=== PATIENT | female | born 1950 | race Caucasian/White ===

== ENCOUNTER → 2016-08-26 | Outpatient (CLI) | payer MEDICARE ==
[2015-04-22 08:56] VITALS: BP 128/76
[~2016-08-26] MED LIST: ANTIBIOTIC; BETA1TAB10 PO; BIOT1CAP3 PO; CALC500T27 PO; CEFP200T PO; CRAN200C PO; MULT1TAB52 PO; SOY155CA PO; VALA500T5 PO
--- NOTE | 2016-08-26 11:55 | RAD ---
DATE: 08/26/2016 EXAM: MAMMO ALYSSA SCREENING BILATERAL HISTORY: Routine screening COMPARISON: 06/29/2015 This study was interpreted with the benefit of Computerized Aided Detection (CAD). FINDINGS: 2-D and 3-D tomosynthesis imaging was performed in CC and MLO projections. The breasts are heterogeneously dense which can limit the sensitivity of mammography. No new or enlarging breast densities are seen. Benign type calcifications are present. No suspicious microcalcifications have developed. IMPRESSION: Stable mammograms without evidence of malignancy. BI-RADS CATEGORY: 2 BENIGN FINDING(S) RECOMMENDED FOLLOW-UP: 12M 12 MONTH FOLLOW-UP PQRS compliance statement: Patient information was entered into a reminder system with a target due date for the next mammogram. Mammography is a sensitive method for finding small breast cancers, but it does not detect them all and is not a substitute for careful clinical examination. A negative mammogram does not negate a clinically suspicious finding and should not result in delay in biopsying a clinically suspicious abnormality. "Our facility is accredited by the [employer] Mammography [employer]."
== END | disposition home or self-care (01) ==
LOC: MAMMO 10:29
PROVIDERS: ATTEND Family Medicine
DX: Z12.31 Encounter for screening mammogram for malignant neoplasm of breast (principal)
CPT/HCPCS: 77063; G0202; 77067

== ENCOUNTER → 2017-06-21 | Outpatient (CLI) | payer MEDICARE ==
[2015-04-22 08:56] VITALS: BP 128/76
[~2017-06-21] MED LIST changes: -CALC500T27 PO; +CALC500T30 PO; -CRAN200C PO; +CRAN200C2 PO
--- NOTE | 2017-06-21 12:32 | RAD ---
Indication: Postmenopausal screening for osteoporosis. Follow-up exam. Comparison: May 06, 2015. Bone Density: -BMD: (g/cm2) - AP Spine Total (L1-L4).......... 0.986. Transitional vertebra may be present. However, the same levels are counted as previous. - Total right Hip................. 0.828. T-Score: - AP Spine Total (L1-L4)......... -1.6. - Total right Hip................. -1.4. Z-Score: - AP Spine Total (L1-L4).......... 0.7. - Total right Hip................. 0.5. World Health Organization criteria for BMD interpretation classify patients as Normal (T-score at or above -1.0), Osteopenic (T-score between -1.0 and -2.5), or Osteoporotic (T-score at or below -2.5). Impression: 1. AP Spine Total L1-L4---osteopenia. Since the previous study, there has been a decrease in the BMD of approximately 3%. 2. Total right Hip---osteopenia. Since the previous study, there has been a decrease in the BMD of approximately 4%.
== END | disposition home or self-care (01) ==
LOC: DXRAD 09:58
PROVIDERS: ATTEND Nurse Practitioner Family
DX: Z13.820 Encounter for screening for osteoporosis (principal); M85.80 Other specified disorders of bone density and structure, unspecified site; Z78.0 Asymptomatic menopausal state
CPT/HCPCS: 77080

== ENCOUNTER → 2017-08-30 | Outpatient (CLI) | payer MEDICARE ==
[2015-04-22 08:56] VITALS: BP 128/76
--- NOTE | 2017-08-31 12:24 | RAD ---
DATE: 08/30/2017 EXAM: MAMMO ALYSSA SCREENING BILATERAL HISTORY: Routine screening COMPARISON: 08/26/2016 This study was interpreted with the benefit of Computerized Aided Detection (CAD). The breast parenchyma is heterogeneously dense, which could reduce sensitivity of mammography. Breast parenchyma level C. FINDINGS: 2-D and 3-D tomosynthesis imaging was performed in CC and MLO projections. The fibroglandular tissues are heterogeneous and somewhat nodular in character. No new or enlarging breast densities are seen. Benign type calcifications are again noted. No suspicious microcalcifications have developed. IMPRESSION: Stable mammograms without evidence of malignancy. BI-RADS CATEGORY: 2 BENIGN FINDING(S) RECOMMENDED FOLLOW-UP: 12M 12 MONTH FOLLOW-UP PQRS compliance statement: Patient information was entered into a reminder system with a target due date for the next mammogram. Mammography is a sensitive method for finding small breast cancers, but it does not detect them all and is not a substitute for careful clinical examination. A negative mammogram does not negate a clinically suspicious finding and should not result in delay in biopsying a clinically suspicious abnormality. "Our facility is accredited by the [employer] Mammography [employer]."
== END | disposition home or self-care (01) ==
LOC: MAMMO 09:49
PROVIDERS: ATTEND Family Medicine
DX: Z12.31 Encounter for screening mammogram for malignant neoplasm of breast (principal)
CPT/HCPCS: 77063; 77067

== ENCOUNTER → 2018-08-15 | Outpatient (CLI) | payer MEDICARE ==
[2015-04-22 08:56] VITALS: BP 128/76
--- NOTE | 2018-08-15 16:27 | RAD ---
Bilateral lower extremity arterial ultrasound, 08/15/2018: HISTORY: Peripheral vascular disease Duplex evaluation of the major arteries in both lower extremities was performed including grayscale, color-flow and spectral Doppler analysis. There are mild scattered atherosclerotic plaques. The right common femoral, superficial femoral and popliteal arteries demonstrate triphasic Doppler waveforms. No significant focal velocity acceleration is seen in those vessels to suggest significant focal stenosis. Patent posterior tibial and anterior tibial arteries are present in the right lower leg demonstrating triphasic and biphasic Doppler waveforms. The right peroneal artery could not be visualized. The right dorsalis pedis artery is patent with a good amplitude biphasic Doppler waveform. On the left the common femoral, superficial femoral and popliteal Doppler waveforms are triphasic. No significant focal velocity acceleration is seen to suggest significant focal stenosis. Patent posterior tibial and anterior tibial arteries are present in the left lower leg demonstrating biphasic Doppler waveforms. The left peroneal artery could not be visualized. The left dorsalis pedis artery is patent with a good amplitude biphasic Doppler waveform. IMPRESSION: 1. Mild scattered atherosclerotic plaquing without evidence of significant femoral-popliteal arterial stenosis. 2. Nonvisualization of the peroneal arteries in both lower legs may be due to occlusion on a technical basis. 3. Good anterior tibial, posterior tibial and dorsalis pedis runoff in both lower legs. Electronically signed by: Silverio Mcnulty MD (08/15/2018 4:24 PM) [facility]
== END | disposition home or self-care (01) ==
LOC: US 10:28
PROVIDERS: ATTEND Family Medicine
DX: I70.291 Other atherosclerosis of native arteries of extremities, right leg (principal)
CPT/HCPCS: 93925

== ENCOUNTER → 2018-09-01 | Outpatient (CLI) | payer MEDICARE ==
[2015-04-22 08:56] VITALS: BP 128/76
--- NOTE | 2018-09-01 10:22 | RAD ---
DATE: 09/01/2018 EXAM: MAMMO ALYSSA SCREENING BILATERAL HISTORY: Routine screening COMPARISON: 08/30/2017 This study was interpreted with the benefit of Computerized Aided Detection (CAD). Breast Density: HETERO The breast parenchyma is heterogenously dense, which could reduce sensitivity of mammography. Breast parenchyma level C. FINDINGS: 2-D and 3-D tomosynthesis imaging was performed in CC and MLO projections. The breasts are quite heterogeneous a multinodular pattern. No new or enlarging breast densities seen. No architectural distortion is evident. Benign type calcifications are present. No suspicious microcalcifications have developed. IMPRESSION: Stable mammograms without evidence of malignancy. BI-RADS CATEGORY: 2 BENIGN FINDING(S) RECOMMENDED FOLLOW-UP: 12M 12 MONTH FOLLOW-UP PQRS compliance statement: Patient information was entered into a reminder system with a target due date for the next mammogram. Mammography is a sensitive method for finding small breast cancers, but it does not detect them all and is not a substitute for careful clinical examination. A negative mammogram does not negate a clinically suspicious finding and should not result in delay in biopsying a clinically suspicious abnormality. "Our facility is accredited by the [employer] Mammography [employer]."
== END | disposition home or self-care (01) ==
LOC: MAMMO 09:36
PROVIDERS: ATTEND Family Medicine
DX: Z12.31 Encounter for screening mammogram for malignant neoplasm of breast (principal); N64.89 Other specified disorders of breast
CPT/HCPCS: 77063; 77067

== ENCOUNTER → 2019-11-15 | Outpatient (CLI) | payer MEDICARE ==
[2015-04-22 08:56] VITALS: BP 128/76
[~2019-11-15] MED LIST changes: +MULT-445 PO; -MULT1TAB52 PO
--- NOTE | 2019-11-19 10:18 | RAD ---
EXAM: BILATERAL DIGITAL 3D SCREENING MAMMOGRAPHY. HISTORY: Routine mammographic screening. TECHNIQUE: Bilateral digital 3D and tomographic images were obtained in CC and MLO projections. Computer-aided detection was applied. COMPARISON: 09/01/2018. COMPOSITION: D. The breasts are extremely dense, which lowers the sensitivity of mammography. FINDINGS: There are no suspicious masses, microcalcifications or architectural distortion. The parenchymal pattern is stable. A few obscured nodules are stable. Scattered and coarse calcifications are benign. BI-RADS CATEGORY 2: Benign. RECOMMENDATION: 1. Routine screening mammography in one year. If mammography demonstrates dense breast tissue (heterogenously dense or extremely dense, category C or D), which could hide abnormalities, and if other risk factors for breast cancer have been identified, supplemental screening tests that may be suggested by the ordering physician may be of benefit. Dense breast tissue, in and of itself, is a relatively common condition. Therefore, this information is not provided to cause undue concern, but rather to raise awareness and to promote discussion with the referring physician regarding the presence of other risk factors, in addition to dense breast tissue. The results of this mammography examination is provided to the patient and referring physician. The patient should contact their referring physician if any questions or concerns exist regarding this report. PQRS compliance statement - Patient information was entered into a reminder system with a target due date for the next mammogram. "Our facility is accredited by the [employer] Mammography [employer]." Electronically signed by: Dann Bauer MD (11/19/2019 10:15 AM) [id number]
== END | disposition home or self-care (01) ==
LOC: MAMMO 14:25
PROVIDERS: ATTEND Family Medicine
DX: Z12.31 Encounter for screening mammogram for malignant neoplasm of breast (principal); N64.89 Other specified disorders of breast
CPT/HCPCS: 77063; 77067

== ENCOUNTER → 2020-03-20 | Outpatient (CLI) | payer MEDICARE ==
[2015-04-22 08:56] VITALS: BP 128/76
--- NOTE | 2020-03-20 15:16 | RAD ---
INDICATION: Osteoporosis screening. Postmenopausal follow-up COMPARISON: 06/21/2017 TECHNIQUE: Bone densitometry was performed through the lumbar spine and proximal femur. FINDINGS: Lumbar Spine: BMD: 1.0 T-Score: -1.4 Not significantly changed from baseline Proximal Femur: BMD: 0.8 T-Score: -1.3 Decreased by 2 percent from baseline IMPRESSION: 1. Lumbar spine falls within the osteopenic range. 2. Proximal femur falls within the osteopenic range. Electronically signed by: Bladimir Tinajero MD (03/20/2020 3:13 PM) [id number]
== END ==
LOC: DXRAD 13:33
PROVIDERS: ATTEND Physician Assistant
DX: Z13.820 Encounter for screening for osteoporosis (principal); M81.8 Other osteoporosis without current pathological fracture
CPT/HCPCS: 77080

== ENCOUNTER → 2020-11-18 | Outpatient (CLI) | payer MEDICARE ==
[2015-04-22 08:56] VITALS: BP 128/76
--- NOTE | 2020-11-19 11:33 | RAD ---
DATE: 11/18/2020 EXAM: MAMMO ALYSSA SCREENING BILATERAL HISTORY: Screening COMPARISON: 11/15/2019, 09/01/2018, 08/30/2017, 08/26/2016, 06/09/2015, 06/05/2014 This study was interpreted with the benefit of Computerized Aided Detection (CAD). Breast Density: DENSE The breast parenchyma is dense, which could reduce the sensitivity of mammography. Breast parenchyma level density D. FINDINGS: There are 2 focal asymmetries in the retroareolar left breast measuring approximately 8 mm each, best seen on MLO tomosynthesis slice 14/49. No suspicious mass in the right breast. No suspicious calcifications or architectural distortion in either breast. IMPRESSION: 2 focal asymmetries in the retroareolar left breast. Recommend ultrasound further evaluate. BI-RADS CATEGORY: 0 INCOMPLETE: NEEDS ADDITIONAL IMAGING EVALUATION AND/OR PRIOR MAMMOGRAMS FOR COMPARISON. RECOMMENDED FOLLOW-UP: ADD ADDITIONAL IMAGING PQRS compliance statement: Patient information was entered into a reminder system with a target due date for the next mammogram. Mammography is a sensitive method for finding small breast cancers, but it does not detect them all and is not a substitute for careful clinical examination. A negative mammogram does not negate a clinically suspicious finding and should not result in delay in biopsying a clinically suspicious abnormality. "Our facility is accredited by the [employer] Mammography [employer]."
== END ==
LOC: MAMMO 11:11
PROVIDERS: ATTEND Family Medicine
DX: Z12.31 Encounter for screening mammogram for malignant neoplasm of breast (principal)
CPT/HCPCS: 77063; 77067

== ENCOUNTER → 2020-12-02 | Outpatient (CLI) | payer MEDICARE ==
[2015-04-22 08:56] VITALS: BP 128/76
--- NOTE | 2020-12-02 13:35 | RAD ---
EXAM: Left breast sonogram. HISTORY: 70-year-old female presents for evaluation of asymmetries within the left breast demonstrate d on a screening mammogram dated 11/18/2020. TECHNIQUE: Sonographic imaging of the left breast targeted to sites of reported asymmetry was perform ed. COMPARISON: 11/18/2020. FINDINGS: There is dense breast parenchyma. There are ectatic ducts within the anterior left breast, some which contain debris. No intraductal mass is seen. There is no suspicious sonographic finding. IMPRESSION: 1. Dense breast parenchyma and mild retroareolar ductal ectasia. There is no suspicious correlate for asymmetry on the recent mammogram. 2. BI-RADS Category 2: Benign finding(s). Annual mammography is recommended. Electronically signed by: Litzy Lozano MD (12/02/2020 1:33 PM) [id number]
== END ==
LOC: US 12:26
PROVIDERS: ATTEND Family Medicine
DX: R92.2 Inconclusive mammogram (principal); N60.42 Mammary duct ectasia of left breast
CPT/HCPCS: 76642

== ENCOUNTER 2021-09-22 06:50 | Inpatient (IN) | payer MEDICARE ==
[~2021-09-22] VITALS: Ht 160 cm; Wt 61.3 kg
[2021-09-22] MEDS ORDERED: IV RINGERS SOLUTION,LACTATED 1,000 ML IV SCH (07:00)
--- NOTE | 2021-09-22 07:14 | RAD ---
CT Head W/O Contrast: History: Reason: ams / Spl. Instructions: / History: Stroke Protocol Comparison: none Axial images were obtained without contrast. There is mild diffuse atrophy. There is no mass effect, extraaxial fluid collections or hydrocephalu s. Mild to moderate There is no focal loss of lion-white matter distinction to suggest acute ischemia , i.e. stroke. There is mild motion artifact. Impression: No acute findings. PQRS Compliance Statement: One or more of the following individualized dose reduction techniques were utilized for this examinat ion: 1. Automated exposure control 2. Adjustment of the mA and/or kV according to patient size 3. Use of iterative reconstruction technique FOR INTERNAL CODING PURPOSES Critical result: Findings discussed with JOSE FERNANDEZ MD at 09/22/2021 7:11 AM. RESULT CODE: (C) Electronically signed by: Avtar Whitten III, MD (09/22/2021 7:12 AM) [facility]
--- NOTE | 2021-09-22 07:26 | PHYS DOC ---
General Adult HPI: HPI: Patient is a 71-year-old female coming from home via EMS for altered mental status and tremors. Patient had been undergoing a bowel prep yesterday for colonoscopy today. ER was notified by patient's GI doctor, Dr. Clemons the patient be coming in. History provided by patient's significant other he does not know if she has any significant medical history but states he is not involved in that aspect. Patient sees Dr. Vo. The colonoscopy she had scheduled today is routine. He states that last time she had a colonoscopy 5 years ago she had passed out after the bowel prep and hit her head. He states that she had shaking that started yesterday. Review of Systems: Review of Systems: All other systems within normal limits except for as noted in the HPI Current Medications: Current Meds: Current Medications Medications (Trade) Dose Ordered Sig/Abhishek Start Time Stop Time Status Last Admin Dose Admin Lactated Ringer's 1,000 ml @ 1,000 mls/hr Q1H 09/22/21 07:00 09/22/21 07:59 Lorazepam (Ativan Inj) 2 mg STK-MED ONCE 09/22/21 06:54 09/22/21 06:54 DC Allergies: Allergies: Allergies Coded Allergies Type Severity Reaction Last Updated Verified No Known Drug Allergies 04/14/15 No Physical Exam: PE: Constitutional: Well developed, well nourished, no acute distress, non-toxic appearance. [] HENT: Normocephalic, atraumatic, bilateral external ears normal, nose normal. [] Eyes: PERRLA, conjunctiva normal, no discharge. [] Neck: No rigidity, supple, no stridor. [] Cardiovascular: Regular rate and rhythm, brisk cap refill [] Lungs & Thorax: Non labored symmetric respirations, no tachypnea or respiratory distress [] Abdomen: Soft, nondistended. Skin: Warm, dry, no erythema, no rash. [] Back: Unremarkable Extremities: No deformities, range of motion grossly intact, no lower extremity edema [] Neurologic: Alert but nonverbal, intermittently cooperative, bilateral upper and lower extremity tremors Psychologic: Unable to assess EKG: EKG: [] Radiology/Procedures: Radiology/Procedures: [] Heart Score: C/O Chest Pain: N/A Risk Factors: Risk Factors: DM, Current or recent (<one month) smoker, HTN, HLP, family history of CAD, obesity. Risk Scores: Score 0 - 3: 2.5% MACE over next 6 weeks - Discharge Home Score 4 - 6: 20.3% MACE over next 6 weeks - Admit for Clinical Observation Score 7 - 10: 72.7% MACE over next 6 weeks - Early Invasive Strategies Course & Med Decision Making: Course & Med Decision Making Patient presents with hyponatremia. Started on normal saline for correction. Admitted to hospitalist, Dr. Crespo. Haja Disclaimer: Haja Disclaimer: This electronic medical record was generated, in whole or in part, using a voice recognition dictation system. Departure Departure: Impression: Primary Impression: Hyponatremia Disposition: ADMITTED INPATIENT Admitting Physician: Jenaro Crespo Condition: STABLE Referrals: EMMETT VO MD (PCP) JOSE FERNANDEZ MD September 22, 2021 07:26
[2021-09-22 08:18] LABS: BASO % 0 % (0-3); EOS % 0 % (0-3); HEMATOCRIT 35.8 % (36.0-47.0); HEMOGLOBIN 12.3 g/dL (12.0-15.5); LYMPH # 0.6 x10^3/uL (1.0-4.8); LYMPH % 5 % (24-48); MEAN CORPUSCULAR HEMOGLOBIN 32 pg (25-35); MEAN CORPUSCULAR HGB CONC 34 g/dL (31-37); MEAN CORPUSCULAR VOLUME 93 fL (79-100); MONO # 1.4 x10^3/uL (0.0-1.1); MONO % 11 % (0-9); NEUT # 10.9 x10^3uL (1.8-7.7); NEUT % 85 % (31-73); PLATELET COUNT 269 x10^3/uL (140-400); RED BLOOD COUNT 3.87 x10^6/uL (3.50-5.40); RED CELL DISTRIBUTION WIDTH 12.1 % (11.5-14.5); WHITE BLOOD COUNT 12.9 x10^3/uL (4.0-11.0)
[2021-09-22 08:23] LABS: CALCIUM 8.4 mg/dL (8.5-10.1); CREATININE 0.5 mg/dL (0.6-1.0); GFR 120.9; POTASSIUM 4.3 mmol/L (3.5-5.1)
[2021-09-22 08:36] LABS: ALBUMIN 3.7 g/dL (3.4-5.0); ALBUMIN/GLOBULIN RATIO 1.3 (1.0-1.7); MAGNESIUM 1.8 mg/dL (1.8-2.4); TOTAL BILIRUBIN 0.8 mg/dL (0.2-1.0); TOTAL PROTEIN 6.6 g/dL (6.4-8.2)
[2021-09-22] MEDS ORDERED: ONDANSETRON PF 4 MG/2 ML VIAL. IVP PRN (09:00)
[2021-09-22] MEDS: IV NORMAL SALINE 1,000ML 1,000 ML IV SCH ×2 (09:00→10:55)
[2021-09-22 09:32] LABS: INFLUENZA A PATIENT NEGATIVE (NEGATIVE); INFLUENZA B PATIENT NEGATIVE (NEGATIVE)
[2021-09-22 10:08] VITALS: BP 131/75
[2021-09-22] MEDS ORDERED: ATOR10TA60 PO (10:41)
[2021-09-22] MEDS ORDERED: ONDA4TAB12 PO (10:41)
[2021-09-22 12:03] LABS: BACTERIA,URINE MANY /HPF (0-FEW); CLARITY,URINE CLOUDY; COLOR,URINE YELLOW; GLUCOSE,URINE NEG (NEG); NITRITE,URINE POS (NEG); SQUAMOUS EPITHELIAL CELL,UR OCC /LPF; UROBILINOGEN,URINE 0.2 mg/dL (0.2 mg/dL)
[2021-09-22 14:51] VITALS: BP 112/67
[2021-09-22 19:30] VITALS: BP 118/76
[2021-09-23 06:00] LABS: BASO % 0 % (0-3); EOS % 0 % (0-3); HEMOGLOBIN 11.2 g/dL (12.0-15.5); LYMPH # 0.8 x10^3/uL (1.0-4.8); LYMPH % 10 % (24-48); MEAN CORPUSCULAR HEMOGLOBIN 32 pg (25-35); MEAN CORPUSCULAR HGB CONC 34 g/dL (31-37); MEAN CORPUSCULAR VOLUME 94 fL (79-100); MONO # 1.5 x10^3/uL (0.0-1.1); MONO % 18 % (0-9); NEUT # 6.2 x10^3uL (1.8-7.7); NEUT % 73 % (31-73); PLATELET COUNT 196 x10^3/uL (140-400); RED BLOOD COUNT 3.51 x10^6/uL (3.50-5.40); WHITE BLOOD COUNT 8.5 x10^3/uL (4.0-11.0)
[2021-09-23 06:11] LABS: ALBUMIN 2.8 g/dL (3.4-5.0); CALCIUM 7.9 mg/dL (8.5-10.1); CREATININE 0.5 mg/dL (0.6-1.0); GFR 120.9; POTASSIUM 3.6 mmol/L (3.5-5.1); TOTAL BILIRUBIN 0.7 mg/dL (0.2-1.0); TOTAL PROTEIN 5.7 g/dL (6.4-8.2)
[2021-09-23 06:21] VITALS: BP 107/63
[2021-09-23] MEDS: IV NORMAL SALINE 1,000ML 1,000 ML IV SCH (09:43)
[2021-09-23 10:47] VITALS: BP 92/52
--- NOTE | 2021-09-23 11:09 | HP ---
DATE OF SERVICE: 09/23/2021 ADMIT DATE: 09/22/2021 ATTENDING PHYSICIAN: Dr. Crespo. CHIEF COMPLAINT: Lethargy. HISTORY OF PRESENT ILLNESS: The patient is a 71-year-old female admitted through the ED with worsening lethargy, confusion and altered mentation. She had an extensive workup. She was in the midst of doing a prep for colonoscopy. They found a serum sodium [address] of the head was unremarkable for any acute strokes or bleeds. She is not on any diuretics. I went over the medication. She does take some Valtrex for postherpetic neuralgia. 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 She was admitted to the hospital for monitoring as well as gentle IV hydration, serial electrolytes. PAST MEDICAL HISTORY: Significant for cataract surgery. She also has hyperlipidemia. She has been very healthy. She lives with a common-law . 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 She balances her checkbook. She drives a car and otherwise very functional. CURRENT MEDICATIONS: Reviewed. She was on Lipitor, beta-carotene, biotin, calcium, cranberry, multivitamin, soy milk and Valtrex. SOCIAL HISTORY: She is a nonsmoker, nondrinker. FAMILY HISTORY: Mom of complications of old age at age 88. Father at an unknown age, unknown causes. REVIEW OF SYSTEMS: Significant for the patient's recent colonoscopy. She was on a bowel prep, which caused nausea and vomiting. Otherwise, the patient has been fairly active. She is very alert. She has balancing her checkbook and drives a car. All other systems reviewed and turned to be negative. PHYSICAL EXAMINATION: GENERAL: When I saw her, she was already doing better as was the next day, sodium come off a it. INITIAL VITAL SIGNS: Showed a blood pressure of 107/63, her pulse is 85 and regular. She was afebrile, oxygen saturation 96% on room air. HEENT: Head is without trauma. Pupils are reactive. Sclerae are nonicteric. Oropharynx is clear. NECK: Supple. No bruits. LUNGS: Clear to auscultation. CARDIOVASCULAR: Showed regular heart tones. ABDOMEN: Soft. EXTREMITIES: Without edema. NEUROLOGIC: She is alert, still a bit lethargic. She was sleeping, but she was able to be awoken and answer questions appropriately. There are no focal deficits. SKIN: Warm and dry. PERTINENT LABORATORY STUDIES: Admission serum sodium was 121 mEq/L, chloride 85, creatinine 0.5, repeat today this morning is up to 129 mEq, potassium 3.6 mEq per liter. Hemoglobin maintained 12.3 grams, white count 8500. Serology negative for coronavirus. ASSESSMENT: 1. A 71-year-old female with symptomatic hyponatremia causing lethargy and altered mentation. 2. Probable syndrome of inappropriate antidiuretic hormone. 3. Postherpetic neuralgia. PLAN: 1. Admit to the inpatient unit. 2. Gentle IV hydration with saline. 3. Serial chemistries. 4. Diet as tolerated. 5. Spot urinary sodium. 6. Some home meds continued. DARIAN/DOUG/NIDHI DR: DARIAN/shantel TID: [id number] CC: EMMETT HOLGUIN MD, CHANDAN OLIVEIRA MD
[2021-09-23 14:16] VITALS: BP 101/67
[2021-09-23] MEDS: ACETAMINOPHEN 500 MG TABLET PO PRN (15:54)
[2021-09-23 19:43] VITALS: BP 91/53
[2021-09-23 23:06] VITALS: BP 111/66
[2021-09-24] MEDS: IV NORMAL SALINE 1,000ML 1,000 ML IV SCH (01:33)
[2021-09-24] MEDS: ACETAMINOPHEN 500 MG TABLET PO PRN (01:33)
[2021-09-24 05:45] VITALS: BP 106/62
[2021-09-24 06:11] LABS: CALCIUM 7.8 mg/dL (8.5-10.1); CREATININE 0.6 mg/dL (0.6-1.0); POTASSIUM 3.8 mmol/L (3.5-5.1)
[2021-09-24] MEDS ORDERED: ACETAMINOPHEN 500 MG TABLET PO PRN (07:30)
[2021-09-24 08:27] VITALS: BP 116/61
--- NOTE | 2021-09-24 16:13 | DS ---
DATE OF DISCHARGE: 09/24/2021 ATTENDING PHYSICIAN: Dr. Crespo. FINAL DISCHARGE DIAGNOSES: 1. Symptomatic hyponatremia. 2. Altered mentation, resolved. 3. Syndrome of inappropriate antidiuretic hormone secretion. 4. Postherpetic neuralgia. HISTORY AND PHYSICAL: The patient is a pleasant, active 71-year-old female admitted through the ED with worsening symptoms of lethargy, confusion. CT of the head was nondiagnostic. Workup showed a serum sodium of 121 mEq per liter. She had been in the process of getting a preparation for colonoscopy whether or not this is the cause, remains to be seen. PHYSICAL EXAMINATION: Please see my dictated note. PERTINENT LABORATORY AND X-RAY STUDIES: Her admission hemoglobin was 12.3 g/dL, white count 12,900. Her serum sodium on admission was 121, with gentle IV hydration with saline the next day was up to 129 mEq per liter and the third day was 139 mEq per liter. Creatinine was stable at 0.6 mg/dL. Nonfasting blood sugar within range, chloride came out concomitantly and the potassium was 3.8 mEq. Random spot urinary sodium was abnormal at 65 mEq. COURSE IN THE HOSPITAL: The patient was admitted. She was started on normal saline with daily chemistries with marked improvement. The goal was to increase the serum sodium by 8-10 mEq per liter. This was accomplished with the judicious rate. She did better. Physical therapy recommended the patient on the chart. At this time, she was ready for discharge. Whether or not she will maintain her sodium, remains to be seen. I recommended some oral Gatorade and a followup chemistry panel with Dr. Holguin next week. She was discharged home, then with recommendation to continue her Lipitor and Valtrex. For now, I have asked her to hold her biotin, beta-carotene, calcium, cranberry extract, multivitamin and isoflavones, these are [id number] vitamins. The patient then discharged from our hospital in stable condition with explicit drug and followup care. Total discharge time was [address]: Jhon TID: [id number] CC: EMMETT HOLGUIN MD
--- NOTE | 2021-09-24 19:40 | PN ---
DATE: 09/23/2021 SUBJECTIVE: The patient has been more alert and oriented. She denies any new medical or neurological complaints; however, the patient did recall what happened prior to admission including the preparation for colonoscopy. The patient did not recall going to the hospital. She denies headaches, visual disturbances, nausea, vomiting, chest pain, shortness of breath or palpitation, dysarthria or dysphagia. The patient also complains of generalized fatigue and weakness. OBJECTIVE: GENERAL: Well-developed, well-nourished female in no acute distress. VITAL SIGNS: Blood pressure 107/63; respiratory rate 20; pulse is 85, regular; oxygen saturation is 96% on room air and temperature is 98.8. HEENT: Normocephalic, atraumatic, otherwise unremarkable. NECK: Supple, negative for carotid bruit, lymphadenopathy or thyromegaly. LUNGS: Clear to A and P. CARDIOVASCULAR SYSTEM: Regular rate and rhythm, normal S1, S2. There is no S3, S4 or murmur. ABDOMEN: Soft. Bowel sounds positive. EXTREMITIES: Negative for cyanosis, clubbing or pedal edema. NEUROLOGIC: Mental status: The patient is alert and oriented x 2. The speech is more fluent. There is no language dysfunction. Memory, judgment and abstracting thinking are fair at this time. The patient denies hallucination or delusion. Cranial nerves: Visual eisenberg are full. The pupils are reactive to light and accommodation. The extraocular movements are intact. There is no nystagmus. There is no facial motor or sensory deficits. Hearing is intact bilaterally. The palate is elevated symmetrically. Sternocleidomastoid muscles are powerful bilaterally. The patient shrugs her shoulders symmetrically, protrudes her tongue in the midline without fasciculation or atrophy. Motor examination: No focal muscle bulk wasting. The tone is normal. The strength is 4/5 throughout. Sensory examination revealed normal pinprick, light touch, vibratory and position senses. Deep tendon reflexes were symmetric and hypoactive with absent Achilles responses. Gait not tested. LABORATORY DATA: CBC revealed blood cells of 8.5 thousand, hemoglobin 11.2, hematocrit 33, platelet count 196,000. Chemistry revealed sodium of 129, potassium 3.6, chloride 96, CO2 of 27, BUN 5, creatinine 0.5, glucose is 85, calcium 7.9. IMPRESSION: 1. Acute encephalopathy -- improved, likely due to hyponatremia and dehydration. 2. Urinary tract infections. 3. Post-herpetic neuralgia. RECOMMENDATIONS: 1. Continue with current management initiated by Dr. Crespo including hydration and treat the underlying urinary tract infections. 2. PT, OT evaluation. 3. Continue with IV fluid and correct hyponatremia. 4. Neurologically, the patient is making good progress of her encephalopathy. KIRBY/RAYMOND DR: Tom TID: [id number]
--- NOTE | 2021-09-24 20:04 | CONS ---
DATE OF CONSULTATION: 09/22/2021 NEUROLOGY CONSULTATION REFERRING PHYSICIAN: Dr. Jenaro Crespo. REASON FOR CONSULTATION: Acute mental status changes. HISTORY OF PRESENT ILLNESS: This is a 71-year-old right-handed female who was admitted through Emergency Room today on 09/22/2021 after she presented with chief complaint of acute mental status changes. According to the patient's niece and , the patient has been taking preparation for colonoscopy since yesterday morning. In the middle of this preparation, the patient was found by her niece and being confused, disoriented and having intermittent stiffness of the upper extremities. On the morning of admission, the patient continued to be confused and disoriented, and unable to talk or answer questions. The was concerned about acute mental status changes and called EMS. The patient was transferred to the Emergency Room and she was found to be confused and disoriented and unable to communicate. Extensive workup including head CT scan revealed no significant abnormalities, but she was found to have low sodium of 121. It was reported to the Emergency Room that the patient had a period of stiffness of her body, and might have seizure-like activities. Therefore, she was given Ativan. The patient was found to be dehydrated secondary to preparation for colonoscopy. According to the , she had a similar problem 5 years ago when she had another preparation for colonoscopy as well. She did take some Valtrex for postherpetic neuralgia. She was diagnosed with SIADH and was admitted with hydration and slowly correction of hyponatremia. During the interviews and discussed the case with the family members including the and niece, the patient continued to be having some stiffness of the entire body, but she did not communicate and/or answer any questions. Therefore, her mental status evaluation was limited at this time of the interview. The patient tried to cover herself and not able to cooperate throughout the physical examinations. PAST MEDICAL HISTORY: Significant for hyperlipidemia and postherpetic neuralgia. PAST SURGICAL HISTORY: Positive for cataract removal. SOCIAL HISTORY: The patient is . There is no history of smoking, alcohol drinking or illicit drug use. She works part-time at a local [employer]. Otherwise, there is no history of major medical or neurological complaints. She lives with her at home. FAMILY HISTORY: Noncontributory. REVIEW OF SYSTEMS: A 10-point review of system was performed as mentioned above in history of present illness, otherwise unremarkable. CURRENT HOME MEDICATIONS: Include multivitamins, Lipitor, supplements including biotin, calcium, cranberry, soy milk, and Valtrex. ALLERGIES: No known drug allergies. PHYSICAL EXAMINATION: GENERAL: A well-developed, well-nourished female, in no acute distress. She weighs 61.3 kilos. VITAL SIGNS: Blood pressure 112/67, respiratory rate 16, pulse is 85, oxygen saturation is 97% on 2 liters via nasal cannula and temperature is 102. HEENT: Normocephalic, atraumatic, otherwise unremarkable; however, the patient resisted the physical examination. NECK: Supple. Negative for carotid bruit, lymphadenopathy or thyromegaly. LUNGS: Clear to A and P. CARDIOVASCULAR SYSTEM: Regular rate and rhythm, normal S1, S2. ABDOMEN: Soft. Bowel sounds positive. EXTREMITIES: Negative for cyanosis, clubbing or pedal edema. NEUROLOGIC: 1. Mental status: The patient is drowsy, lethargic and not able to communicate or cooperate with the examination. Therefore, mental status evaluation is very limited. 2. Cranial nerves: Pupils are equal, reactive to light. The extraocular movements are slow. There is no facial motor or sensory deficits. Further evaluation is limited at this time. However, there is no facial motor asymmetry. 3. Motor Examination: No focal muscle bulk wasting. The patient resists to manual motor examination. Sensory examination: The patient was withholds extremities to noxious stimuli. Deep tendon reflexes were symmetric and hypoactive with absent Achilles responses. Gait not tested. LABORATORY DATA: CBC revealed white blood cells of 12.9 thousand, hemoglobin 12.3, hematocrit 35.8, platelet count 269,000. The neutrophils is 10.9%, lymphocyte is 0.6%. Chemistry revealed sodium of 121, potassium 4.3, chloride 85, CO2 28, BUN 7, creatinine 0.5, glucose 105, calcium 8.4, phosphorus is 3, magnesium 1.8. Liver enzymes are normal. BNP is high at 783. Troponin I high sensitivity is 16, protein is low, protein is normal at 6.6. Coagulation is normal. Urinalysis revealed possible urinary tract infection with small urinary leukocyte and white blood cells of 11-20 with many bacteria and positive for urine nitrite. COVID PCR not detected. Influenza A and B antibodies are negative. DIAGNOSTIC DATA: A nonenhanced head CT scan revealed no acute intracranial process with mild diffuse atrophy, otherwise unremarkable. IMPRESSION: 1. Acute encephalopathy, probably metabolic type. Hyponatremia and dehydration, resulted in syndrome of inappropriate antidiuretic hormone. 2. Urinary tract infections. 3. Status post postherpetic neuralgia. RECOMMENDATIONS: 1. Continue with current management initiated by Dr. Crespo including hydration. 2. Correct hyponatremia slowly to avoid central pontine myelinolysis. 3. Treat the underlying urinary tract infection. DANIEL DR: Tom TID: [id number]
--- NOTE | 2021-09-24 23:56 | PN ---
SUBJECTIVE: The patient denies any new medical or neurological complaints; however, she has had intermittent global headaches, more prominent on the top of head. The headache is responding to Tylenol. She denies any other medical or neurological complaints. The patient denies dysuria or hematuria. She denies lower abdominal pain. OBJECTIVE: GENERAL: Well-developed, well-nourished female in no acute distress. VITAL SIGNS: Blood pressure 160/61, respiratory rate 18, pulse is 77 and regular, temperature 98.6, oxygen saturation 96% on room air. HEENT: Normocephalic, atraumatic, otherwise unremarkable. NECK: Supple, negative for carotid bruit, lymphadenopathy or thyromegaly. LUNGS: Clear to A and P. CARDIOVASCULAR SYSTEM: Regular rate and rhythm, normal S1, S2. There is no S3, S4, or murmur. ABDOMEN: Soft. Bowel sounds positive. EXTREMITIES: Negative for cyanosis, clubbing, or pedal edema. NEUROLOGIC: Mental status: The patient is alert and oriented x 3. Speech is fluent. There are no language dysfunctions. Memory, judgment, and abstracting thinking are normal. The patient denies hallucination or delusion. Cranial nerves are intact. No focal motor or sensory deficits. Deep tendon reflexes were symmetric and hypoactive with absent Achilles responses. Gait not tested. IMPRESSION: 1. Acute encephalopathy -- resolved, probably metabolic due to hyponatremia and dehydration resulted from preparation for colonoscopy. 2. Urinary tract infections. RECOMMENDATIONS: Continue with current management initiated by Dr. Crespo including antibiotics for urinary tract infections and correct hyponatremia slowly. PT, OT evaluation. ASLHEY DR: Tom TID: [id number]
== END 2021-09-24 11:23 | disposition home or self-care (01) | DRG 643 ==
LOC: ER 06:50 → ER HOLD 08:56 → 1 SOUTH 09:58
PROVIDERS: ADMIT Hospitalist; ATTEND Hospitalist
DX: E22.2 Syndrome of inappropriate secretion of antidiuretic hormone (principal); G93.41 Metabolic encephalopathy; B02.29 Other postherpetic nervous system involvement; N39.0 Urinary tract infection, site not specified; E78.5 Hyperlipidemia, unspecified; E86.0 Dehydration; Z63.4 Disappearance and death of family member
CPT/HCPCS: 36415; 70450; 80048; 80053; 81001; 83735; 83880; 83930; 84100; 84300; 84484; 85025; 85610; 85730; 87077; 87086; 87186; 87428; 93005; 96361; 96374; 96376; J0696; J2060; J7120; U0003; 97530; 99285-25; J7030